=== PATIENT | female | born 1980 | race Caucasian/White ===

== ENCOUNTER → 2019-03-11 | Outpatient (REF) | payer OTHER | LOC: M LAB REF 10:39 | PROVIDERS: ATTEND Physician Assistant | DX: N39.0 Urinary tract infection, site not specified (principal) ==

== ENCOUNTER → 2020-08-04 | Outpatient (REF) | payer OTHER ==
[~2020-08-04] MED LIST: CETI-24 PO; EFFE37.5 PO; FLUC200T2 PO; HYDR4CRE TOP; SUMA25TA3 PO; TRET0.02 TOP; [UNRECOGNIZED DRUG - CODE] TOP
== END ==
LOC: M LAB REF 18:26
PROVIDERS: ATTEND Physician Assistant
DX: J02.9 Acute pharyngitis, unspecified (principal)

== ENCOUNTER → 2020-11-16 | Outpatient (CLI) | payer OTHER ==
--- NOTE | 2020-11-16 18:02 | REP ---
INDICATION: CHRONIC RAMIREZ SINUSITIS COMPARISON: None. TECHNIQUE: Axial noncontrast images through the facial bones to include the mandible with coronal and sagittal re-formations. FINDINGS: The sinuses and mastoid air cells are well aerated and clear. No mucoperiosteal changes or fluid levels are identified. The bilateral ostiomeatal complexes are patent and normal. Nasal passages including bilateral nasal turbinates are normal. There is subtle leftward deviation to the nasal septum Osseous structures are intact and normal. Bilateral orbits are symmetric and normal. IMPRESSION: Normal maxillofacial CT. No evidence for acute or chronic sinus disease. <Electronically signed by Spencer Stallings > 11/16/20 [id number]
== END ==
LOC: M RAD 17:01
PROVIDERS: ATTEND Otolaryngology
DX: J32.4 Chronic pansinusitis (principal)

== ENCOUNTER → 2020-12-26 | Outpatient (REF) | payer OTHER | LOC: M LAB REF 18:59 | PROVIDERS: ATTEND Physician Assistant | DX: L57.0 Actinic keratosis (principal) ==

== ENCOUNTER 2023-06-02 10:57 | Day surgery (SDC) | payer OTHER ==
[~2023-06-02] VITALS: Ht 170.2 cm; Wt 97.3 kg
[~2023-06-02 10:57] MED LIST changes: +EMGA120I SC; -FLUC200T2 PO; +FLUC200T4 PO; +NS 1,000 ML IV ONE; +OMEP40CA5 PO; +VITA1CAP25 PO
[2023-06-02] MEDS ORDERED: fentaNYL 100 MCG/2 ML INJECTION As Ordered ONE (13:08)
[2023-06-02] MEDS ORDERED: propofoL 200 MG/20 ML VIAL As Ordered ONE ×3 (13:30→13:38)
[2023-06-02] MEDS ORDERED: LIDOCAINE 2% 100MG/5ML SDV (FOR ANES.) As Ordered ONE (13:32)
[2023-06-02 13:51] VITALS: TEMP 97.6
[2023-06-02 14:11] VITALS: BP 97/49; O2SAT 100
== END 2023-06-02 14:29 | disposition home or self-care (01) ==
LOC: M OPP 10:57
PROVIDERS: ATTEND Internal Medicine Gastroenterology
DX: K64.4 Residual hemorrhoidal skin tags (principal); K64.8 Other hemorrhoids; K63.5 Polyp of colon; K63.3 Ulcer of intestine; K29.70 Gastritis, unspecified, without bleeding; Z79.899 Other long term (current) drug therapy; Z88.2 Allergy status to sulfonamides
CPT/HCPCS: 43239; 45380; 88305; J3010